=== PATIENT | male | born 1945 | race Caucasian/White ===

== ENCOUNTER 2016-12-06 10:00 | Emergency (ER) | payer MEDICARE, OTHER ==
--- NOTE | 2016-12-06 10:28 | EDM.PDOC ---
ED HPI HEAD INJURY - General Chief Complaint: Head Injury Stated Complaint: FELL ON ICE,HIT HEAD @ HOME Time Seen by Provider: 12/06/16 10:15 Source of Information: Reports: Patient History Limitations: Reports: No limitations - History of Present Illness INITIAL COMMENTS - FREE TEXT/NARRATIVE: This 71 yo male patient reports to the ED due to a fall (2 days ago), intermittent dizziness, and a headache. The patient reports he got home late Tuesday evening, stepped out of the garage, slipped on the ice and hit the back of his head on the ground. The patient reports initial pain in his right shoulder, left hip and posterior head. The patient reports he may have had a brief episode of loss of consciousness. Since the fall, the patient has had intermittent episodes of dizziness with movements. This morning he reports a small headache and dizziness. The patient reports he has not been feeling well since the fall. The patient's reports he has been a little "sluggish" since the fall. The patient reports no similar symptoms in the past. Symptom Onset Date: 12/04/16 Symptom Onset Time: 23:50 Timing/Duration: Reports: Intermittent Location: Reports: occipital Quality: Reports: ache, dull Severity: moderate Place of Occurrence: home Improves with: rest Worsens with: movement Context: Reports: fall Associated Symptoms: Reports: headache, loss of consciousness (possible short duration), dizziness (intermittent with quick movements of his head) - Related Data Allergies/ADRs: Allergies Allergy/AdvReac Type Severity Reaction Status Date / Time Penicillins Allergy Diarrhea Verified 09/09/13 06:21 Sulfa (Sulfonamide Allergy Swelling Verified 12/06/16 10:42 Antibiotics) Home Meds: Home Meds Carvedilol [Coreg] 12.5 mg PO BID 09/09/13 [History] Clopidogrel [Plavix] 75 mg PO DAILY 09/09/13 [History] Fish Oil/Borage/Flax/Om3,6,9#1 [[place] 3-6-9 Complex Softgel] 1 each PO DAILY 10/22 [History] Glucosamine HCl [Glucosamine] 1,500 mg PO BID 09/09/13 [History] Multivitamin [Multi Vitamin Daily] 1 each PO DAILY 09/09/13 [History] Simvastatin [Zocor] 40 mg PO BEDTIME 09/09/13 [History] Aspirin 81 mg PO DAILY 12/06/16 [History] Losartan Potassium [Losartan Potassium] 25 mg PO DAILY 12/06/16 [History] Past Medical History - Past Health History Medical/Surgical History: Denies Medical/Surgical History Social & Family History - Tobacco Use Second Hand Smoke Exposure: No - Recreational Drug Use Recreational Drug Use: No ED ROS GENERAL - Review of Systems Review Of Systems: See Below Constitutional: Reports: no symptoms HEENT: Reports: No symptoms Respiratory: Reports: no symptoms Cardiovascular: Reports: No symptoms Endocrine: Reports: no symptoms GI/Abdominal: Reports: No symptoms : Reports: no symptoms Musculoskeletal: Reports: other (posterior head pain) Skin: Reports: no symptoms Neurological: Reports: no symptoms Psychiatric: Reports: No symptoms Hematologic/Lymphatic: Reports: no symptoms Immunologic: Reports: no symptoms ED EXAM, HEAD INJURY - Physical Exam Exam: See Below Exam Limited By: No limitations General Appearance: alert, WD/WN, mild distress, obese Head: atraumatic, normocephalic Nexus Criteria: No: posterior, midline cervical tenderness, evidence of intoxication, altered level of consciousness, focal neurological deficit, painful distracting injuries Eyes: bilateral eye: EOMI, normal inspection, PERRL Ears: normal external exam, normal canal, hearing grossly normal, normal TMs Nose: normal inspection, normal mucousa, no blood Throat/Mouth: Normal inspection, Normal lips, Normal teeth, Normal gums, Normal oropharynx, Normal voice, No airway compromise Neck: non-tender, full range of motion, normal alignment, normal inspection Respiratory: no respiratory distress, lungs clear, normal breath sounds, no accessory muscle use, chest non-tender Cardiovascular: normal peripheral pulses, regular rate, rhythm, no edema, no gallop, no JVD, no murmur, no rub GI/Abdominal Exam (Abbreviated): normal bowel sounds, soft, non tender, no organomegaly, no distention, no abnormal bruit, no mass (Male) Exam: Deferred Rectal (Males) Exam: Deferred Back Exam: full range of motion, normal inspection, NT Extremities: no evidence of injury, normal range of motion, non-tender, no pedal edema, pelvis stable Neurologic: attending radiologist II-XII nml as tested, no motor/sensory deficits, alert, normal mood/affect, oriented x 3 Skin: Normal color, Warm/dry - [place] Coma Score Best Eye Response ([place]): (4) open spontaneously Best Verbal Response ([place]): (5) oriented Best Motor Response ([place]): (6) obeys commands [place] Total: 15 Course - Vital Signs Last Recorded V/S: Last Vital Signs Temp 36.1 C 12/06/16 10:37 Pulse 61 12/06/16 10:37 Resp 16 12/06/16 10:37 BP 135/74 12/06/16 10:37 Pulse Ox 97 12/06/16 10:37 - Orders/Labs/Meds Orders: Active Orders 24 hr Category Date Time Status Head wo Cont [CT] Urgent Exams 12/06/16 10:15 Taken Departure - Departure Time of Disposition: 11:22 Disposition: Home, Self-Care 01 Condition: fair Clinical Impression: Concussion with no loss of consciousness Instructions: Concussion, Adult, [id number] Forms: ED Department Discharge Care Plan Goals: The patient was advised of the examination and CT results during the visit. The patient was encouraged to continue to monitor his symptoms. If the patient has any additional symptoms or concerns, the patient should follow-up with his primary care facility for further evaluation (MRI) and management. - My Orders Last 24 Hours: My Active Orders 12/06/16 10:15 Head wo Cont [CT] Urgent - Assessment/Plan Last 24 Hours: My Active Orders 12/06/16 10:15 Head wo Cont [CT] Urgent
[2016-12-06 10:38] VITALS: BP 135/74
--- NOTE | 2016-12-06 11:29 | CT ---
CLINICAL HISTORY: 71-year-old male with head injury (fell striking back of the head) Tuesday, 3 day s ago, now complaining of headache and dizziness. SCAN TECHNIQUE: Volume acquisition of data from an emergency unenhanced CT scan of the head obtained with the patient lying supine on the Siemens multislice CT scanner [place], [place]. All data archived in the PACS system for storage and study (bone/brain windows). INTERPRETATION: Uniformly thick bony calvarium without sign of skull fracture or underlying brain contusion or epidu ral/subdural hematoma (asymmetrically prominent transverse sinus, posterior fossa on the right). Physiologic midline pineal and symmetric choroid plexus calcifications. Cavum septum pellucidum. Den se mucoperiosteal thickening maxillary antra. Sclerotic mastoid sinuses. Generalized atrophy pattern. Microvascular ischemic changes periventricular white matter and lacunar infarct involving the putamen basal ganglia on the left. No sign of supratentorial or posterior fossa mass lesion. No hydrocephalus. No sign of acute intracerebral/intraventricular/subarachnoid bleed. CONCLUSION: Atrophy and microvascular ischemic changes. 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 Chronic sinusitis. No skull fracture or signs of acute intracranial bleed (asymmetrically prominent transverse sinus, p osterior fossa).
== END 2016-12-06 11:30 | disposition home or self-care (01) ==
LOC: DL.ED 10:00
DX: S06.0X0A Concussion without loss of consciousness, initial encounter (principal); Z88.0 Allergy status to penicillin; Z88.2 Allergy status to sulfonamides; Z79.82 Long term (current) use of aspirin; Z79.899 Other long term (current) drug therapy; W00.0XXA Fall on same level due to ice and snow, initial encounter; Y92.009 Unspecified place in unspecified non-institutional (private) residence as the place of occurrence of the external cause
CPT/HCPCS: 70450; 99283; 99284

== ENCOUNTER 2019-05-23 07:57 | Day surgery (SDC) | payer OTHER, MEDICARE ==
[~2019-05-23 07:57] MED LIST: Dextrose 5%-0.45% NaCl 1,000 ML IV SCH
[2019-05-23] MEDS ORDERED: fentaNYL 100 MCG/2 ML SDV IV ONE ×3 (07:58→08:42)
[2019-05-23] MEDS ORDERED: Midazolam 1 MG/ML 2 ML SDV IV ONE ×7 (07:58→08:47)
[2019-05-23] MEDS ORDERED: Midazolam 1 MG/ML 2 ML SDV ONE (08:16)
[2019-05-23] MEDS ORDERED: fentaNYL 100 MCG/2 ML SDV ONE (08:16)
[2019-05-23 10:18] VITALS: BP 123/63
--- NOTE | 2019-05-23 14:57 | OR ---
DATE: 05/23/2019 PREOPERATIVE DIAGNOSIS: Change in bowel function. POSTOPERATIVE DIAGNOSIS: Change in bowel function. PROCEDURE: Total colonoscopy. ANESTHESIA: Conscious sedation with IV Versed and fentanyl. SPECIMEN: None. FINDINGS: Normal colonoscopy. RECOMMENDATION: Followup screening colonoscopy for polyps in 10 years, otherwise only for symptoms. INDICATION FOR PROCEDURE: This 73-year-old male claims he has a change in bowel function and has increased episodes of diarrhea. His last colonoscopy was around 10 years ago. PROCEDURE IN DETAIL: After adequate preparation, a colonoscope was inserted into the rectum. This was easily passed all the way to the cecum. Confirmation of the cecum was made by visualization of the ileocecal valve and palpation of the right lower quadrant. A photograph of the valve was taken. The bowel prep was excellent. On withdrawal of the scope, no abnormalities were noted. Anal and rectal examinations are also normal. Air was suctioned from the colon and the scope removed. [facility] /[id number] [facility]
== END 2019-05-23 10:26 | disposition home or self-care (01) ==
LOC: DL.ENDO 07:57
PROVIDERS: ATTEND Surgery
DX: R19.4 Change in bowel habit (principal)
CPT/HCPCS: 45378; J2250; J3010; J7042; G0121

== ENCOUNTER 2020-03-11 19:16 | Emergency (ER) | payer MEDICARE, OTHER ==
[2020-03-11 19:30] VITALS: BP 162/79; PULSE 85
[2020-03-11] MEDS ORDERED: Lidocaine 1% 30 ML SDV INJECT ONE (19:59)
--- NOTE | 2020-03-11 21:09 | EDM.PDOC ---
ED HPI GENERAL MEDICAL PROBLEM - General Chief Complaint: Lower Extremity Injury/Pain Stated Complaint: tore big toenail off Time Seen by Provider: 03/11/20 20:00 Source of Information: Reports: Patient, RN, RN Notes Reviewed History Limitations: Reports: No Limitations - History of Present Illness INITIAL COMMENTS - FREE TEXT/NARRATIVE: Patient presents to ER with complaint of pulling the toenail of the right great toenail off nearly completely. Patient states he stumbled and caught his toenail on carpeting in his home. Patient states he did not initially notice it , or think that it was as bad as it was. Later noticed bleeding. Patient denies being a diabetic. Patient states he has "heart problems", is on Plavix and aspirin. Patient states he initially was able to peel the toenail all the way backward. States the pain has increased significantly. Onset: Today, Sudden - Related Data Allergies Allergy/AdvReac Type Severity Reaction Status Date / Time clindamycin Allergy Other Verified 03/11/20 19:24 latex Allergy Rash Verified 03/11/20 19:24 Penicillins Allergy Diarrhea Verified 03/11/20 19:24 Sulfa (Sulfonamide Allergy Swelling Verified 03/11/20 19:24 Antibiotics) Home Meds: Home Meds Clopidogrel [Plavix] 75 mg PO DAILY 09/09/13 [History] Glucosamine HCl [Glucosamine] 1,500 mg PO BID 09/09/13 [History] Multivitamin [Multi Vitamin Daily] 1 each PO DAILY 09/09/13 [History] Simvastatin [Zocor] 40 mg PO BEDTIME 09/09/13 [History] carvediloL [Coreg] 12.5 mg PO BID 09/09/13 [History] Aspirin 81 mg PO DAILY 12/06/16 [History] Losartan Potassium 25 mg PO DAILY 12/06/16 [History] Cholecalciferol (Vitamin D3) [Vitamin D3] 400 units PO DAILY 04/19/19 [History] Escitalopram Oxalate 5 mg PO DAILY 04/19/19 [History] Calcium Carbonate [Calcium] 1,200 mg PO DAILY 03/11/20 [History] Past Medical History - Past Health History Medical/Surgical History: Denies Medical/Surgical History HEENT History: Reports: Hard of Hearing, Impaired Vision, Other (See Below) Other HEENT History: HX OF CHRONIC MASTOIDITIS. RIGHT HEARING AIDE. WEARS CORRECTIVE LENS. UPPER PARTIAL PLATE Cardiovascular History: Reports: CAD, High Cholesterol, Hypertension, [place] Respiratory History: Reports: Sleep Apnea Gastrointestinal History: Reports: Chronic Diarrhea Genitourinary History: Reports: None Musculoskeletal History: Reports: Fracture, Osteoarthritis Other Musculoskeletal History: FOOT AND FINGER FRACTURE HISTORY Neurological History: Reports: None Psychiatric History: Reports: Depression Endocrine/Metabolic History: Reports: Obesity/BMI 30+, Vitamin D Deficiency Hematologic History: Reports: None Immunologic History: Reports: None Oncologic (Cancer) History: Reports: None Dermatologic History: Reports: None - Infectious Disease History Infectious Disease History: Reports: Chicken Pox, Measles - Past Surgical History Head Surgeries/Procedures: Reports: None HEENT Surgical History: Reports: Oral Surgery, Tonsillectomy, Other (See Below) Other HEENT Surgeries/Procedures: BILAT EAR SURGERY D/T CHORNIC MASTIODITIS Cardiovascular Surgical History: Reports: Carotid Stents Respiratory Surgical History: Reports: None GI Surgical History: Reports: Colonoscopy Male Surgical History: Reports: None Endocrine Surgical History: Reports: None Neurological Surgical History: Reports: None Musculoskeletal Surgical History: Reports: Knee Replacement, Other (See Below) Other Musculoskeletal Surgeries/Procedures:: BILAT KNEE REPLACEMENTS Oncologic Surgical History: Reports: None Dermatological Surgical History: Reports: None Social & Family History - Family History Family Medical History: Noncontributory - Tobacco Use Smoking Status *Q: Never Smoker Second Hand Smoke Exposure: No - Caffeine Use Caffeine Use: Reports: Coffee Other Caffeine Use: AVERAGE OF 2 CUPS DAILY - Recreational Drug Use Recreational Drug Use: No Review of Systems - Review of Systems Review Of Systems: Comprehensive ROS is negative, except as noted in HPI. ED EXAM, GENERAL - Physical Exam Exam: See Below Exam Limited By: No Limitations General Appearance: Alert, WD/WN, No Apparent Distress Eye Exam: Bilateral Eye: EOMI, Normal Inspection Ears: Normal External Exam, Hearing Grossly Normal Nose: Normal Inspection Throat/Mouth: Normal Inspection, Normal Voice, No Airway Compromise Head: Atraumatic, Normocephalic Neck: Normal Inspection, Supple, Non-Tender, Full Range of Motion Respiratory/Chest: No Respiratory Distress, Lungs Clear, Normal Breath Sounds, No Accessory Muscle Use, Chest Non-Tender Cardiovascular: Normal Peripheral Pulses, Regular Rate, Rhythm, No Gallop, No JVD, No Murmur, No Rub. No: No Edema (Bilateral lower extremity/pedal edema +2) Peripheral Pulses: 2+: Radial (L), Radial (R), Posterior Tibial (L), Posterior Tibial (R) GI/Abdominal: Normal Bowel Sounds, Soft, Non-Tender (Male) Exam: Deferred Rectal (Males) Exam: Deferred Back Exam: Normal Inspection, Full Range of Motion, NT Extremities: Pedal Edema (+2), Other (Right great toe pain) Neurological: Alert, Oriented, CN II-XII Intact, Normal Cognition, Normal Gait, Normal Reflexes, No Motor/Sensory Deficits Psychiatric: Normal Affect, Normal Mood Skin Exam: Warm, Dry, Intact, Normal Color, No Rash, Other (Nail of the right great toe torn from tissue on each side, still attached by the eponychium) Lymphatic: No Adenopathy ED TRAUMA EXTREMITY PROCEDURES - Laceration/Wound Repair Right Toe - Great Anesthetic Type: Digital Local Anesthesia - Lidocaine (Xylocaine): 1% Plain Local Anesthetic Volume: Other (8) Skin Prep: Chlorhexidine (Hibiciens) Exploration/Debridement/Repair: Wound Explored, No Foreign Material Found Drain Placement: No Sterile Dressing Applied: Provider Tetanus Status Addressed: Yes Complications: No Progress/Comments: Digital block performed, toenail replaced further into the eponychium, telfa placed and toe wrapped with Coban. Course - Vital Signs Last Recorded V/S: Last Vital Signs Temp 97.6 F 03/11/20 19:29 Pulse 85 03/11/20 19:29 Resp 16 03/11/20 19:29 BP 162/79 H 03/11/20 19:29 Pulse Ox 96 03/11/20 19:29 - Orders/Labs/Meds Meds: Medications Discontinued Medications Generic Name Dose Route Start Last Admin Trade Name Swetha PRN Reason Stop Dose Admin Lidocaine HCl 30 ml 03/11/20 19:59 03/11/20 20:52 Xylocaine-Mpf 1% INJECT 03/11/20 20:00 30 ml ONETIME ONE Administration - Re-Assessments/Exams Free Text/Narrative Re-Assessment/Exam: 03/12/20 04:59 Discussed patient case with Dr. Yasir Rodriguez, [facility], who states the toe can have a compression wrap placed and left for 2-3 days. She states she can see the patient in the clinic this week to recheck the toenail. Departure - Departure Time of Disposition: 21:07 Disposition: Home, Self-Care 01 Condition: Good Clinical Impression: Toenail torn away - Discharge Information *PRESCRIPTION DRUG MONITORING PROGRAM REVIEWED*: No *COPY OF PRESCRIPTION DRUG MONITORING REPORT IN PATIENT [place]: No Instructions: Nail Avulsion Forms: ED Department Discharge Additional Instructions: Call [facility] [phone] tomorrow morning to make an appointment this week with Dr. Rodriguez in Podiatry Keep compression dressing on until you see Dr. Rodriguez Keep area clean and dry Follow up with Podiatry this week Return to the ER if any further problems Sepsis Event Note - Evaluation Sepsis Screening Result: No Definite Risk - Focused Exam Vital Signs: Vital Signs Temp Pulse Resp BP Pulse Ox 03/11/20 19:29 97.6 F 85 16 162/79 H 96 Date Exam was Performed: 03/12/20 Time Exam was Performed: 04:48
== END 2020-03-11 20:14 | disposition home or self-care (01) ==
LOC: DL.ED 19:16
DX: S91.211A Laceration without foreign body of right great toe with damage to nail, initial encounter (principal); F32.9 Major depressive disorder, single episode, unspecified; I10 Essential (primary) hypertension; E66.9 Obesity, unspecified; E78.00 Pure hypercholesterolemia, unspecified; I25.10 Atherosclerotic heart disease of native coronary artery without angina pectoris; I25.2 Old myocardial infarction; Z88.1 Allergy status to other antibiotic agents; Z88.0 Allergy status to penicillin; Z88.2 Allergy status to sulfonamides; Z91.040 Latex allergy status; Z79.02 Long term (current) use of antithrombotics/antiplatelets; Z79.899 Other long term (current) drug therapy; Z79.82 Long term (current) use of aspirin; Z68.41 Body mass index [BMI] 40.0-44.9, adult; W23.0XXA Caught, crushed, jammed, or pinched between moving objects, initial encounter
CPT/HCPCS: 11730; 99283; J2001; 64450

== ENCOUNTER 2024-04-24 06:56 | Day surgery (SDC) | payer MEDICARE, OTHER ==
[~2024-04-24 06:56] MED LIST changes: -Dextrose 5%-0.45% NaCl 1,000 ML IV SCH; +Midazolam 1 MG/ML 2 ML SDV ONE; +fentaNYL 100 MCG/2 ML SDV ONE
[2024-04-24] MEDS ORDERED: Midazolam 1 MG/ML 2 ML SDV IV ONE (06:57)
[2024-04-24] MEDS ORDERED: fentaNYL 100 MCG/2 ML SDV IV ONE (06:57)
[2024-04-24] MEDS: Dextrose 5%-0.45% NaCl 1,000 ML IV SCH (07:57)
[2024-04-24] MEDS: fentaNYL 100 MCG/2 ML SDV IV ONE ×2 (08:20→08:21)
[2024-04-24] MEDS: Midazolam 1 MG/ML 2 ML SDV IV ONE ×4 (08:21→08:29)
[2024-04-24 08:44] VITALS: BP 120/95; PULSE 66
== END 2024-04-24 10:05 | disposition home or self-care (01) ==
LOC: DL.ENDO 06:56
PROVIDERS: ATTEND Internal Medicine Gastroenterology
DX: K57.30 Diverticulosis of large intestine without perforation or abscess without bleeding (principal); K52.9 Noninfective gastroenteritis and colitis, unspecified
CPT/HCPCS: 45380; 88305; J2250; J3010; J7799